=== PATIENT | female | born 1950 | race Caucasian/White ===

== ENCOUNTER → 2021-05-16 | Outpatient (CLI) | payer MEDICARE ==
--- NOTE | 2021-05-16 12:09 | XR ---
EXAMINATION TYPE: XR chest 2V DATE OF EXAM: 05/16/2021 COMPARISON: None HISTORY: Chest tightness TECHNIQUE: Frontal and lateral views of the chest are obtained. FINDINGS: There is no focal air space opacity, pleural effusion, or pneumothorax seen. The cardiac silhouette size is within normal limits. The osseous structures are intact. IMPRESSION: No acute cardiopulmonary process.
== END | disposition home or self-care (01) ==
LOC: RADXRMAIN 11:19
PROVIDERS: ATTEND Family Medicine
DX: R07.89 Other chest pain (principal)
CPT/HCPCS: 71046

== ENCOUNTER → 2021-12-19 | Outpatient (CLI) | payer MEDICARE ==
--- NOTE | 2021-12-20 08:20 | MM ---
Reason for exam: additional evaluation requested from prior study. Last mammogram was performed 1 month ago. History: Patient is postmenopausal. Family history of breast cancer in sister at age 59. Excisional biopsy of the right breast. Physical Findings: Nurse did not find any significant physical abnormalities on exam. MG 3D Diag Mammo W/Cad ABDIEL Bilateral spot compression CC, spot compression MLO, and LM view(s) were taken. Prior study comparison: November 21, 2021, mammogram, performed at [facility]. November 16, 2020, mammogram, performed at [facility]. August 03, 2018, mammogram, performed at [facility]. May 26, 2017, mammogram, performed at [facility]. There are scattered fibroglandular densities. No persisting asymmetric densities on spot 3D views. No significant new findings when compared with previous films. These results were verbally communicated with the patient and result sheet given to the patient on 12/19/21. ASSESSMENT: Benign, BI-RAD 2 RECOMMENDATION: Routine screening mammogram of both breasts in 1 year.
== END | disposition home or self-care (01) ==
LOC: RADMAMWWP 14:15
PROVIDERS: ATTEND Family Medicine
DX: N64.89 Other specified disorders of breast (principal); Z80.3 Family history of malignant neoplasm of breast; Z78.0 Asymptomatic menopausal state
CPT/HCPCS: 77066; G0279; 77062

== ENCOUNTER → 2023-03-04 | Outpatient (CLI) | payer MEDICARE ==
--- NOTE | 2023-03-05 06:45 | MM ---
Reason for Exam: Screening (asymptomatic). Last mammogram was performed 1 year(s) and 3 month(s) ago. Patient History: Menarche at age 10. First Full-Term at age 28. Postmenopausal. Patient has history of breast feeding. Excisional Biopsy on the Right side. Sister had breast cancer, age 59. Risk Values: Gunjan 5 year model risk: 4.5%. NCI Lifetime model risk: 11.3%. Prior Study Comparison: 05/26/2017 Screening Mammogram, [facility]. 08/03/2018 Screening Mammogram, [facility]. 11/16/2020 Screening Mammogram, [facility]. 11/21/2021 Screening Mammogram, [facility]. 12/19/2021 Bilateral Diagnostic Mammogram, [facility]. Tissue Density: The breast tissue is heterogeneously dense. This may lower the sensitivity of mammography. Findings: Analyzed By CAD. There are a few benign-appearing tiny round calcifications scattered throughout the bilateral breasts. There is no suspicious group of microcalcifications or new suspicious mass in either breast. Overall Assessment: Benign, BI-RAD 2 Management: Screening Mammogram of both breasts in 1 year. . Patient should continue monthly self-breast exams. A clinical breast exam by your physician is recommended on an annual basis. This exam should not preclude additional follow-up of suspicious palpable abnormalities. Note on Gunjan scores and lifetime risk: 1. A Gunjan score greater than 3% is considered moderate risk. If this is the case, consider specialist referral to assess eligibility for a risk reducing agent. 2. If overall lifetime risk for the development of breast cancer is 20% or higher, the patient may qualify for future screening with alternating mammogram and breast MRI. Electronically signed and approved by: Ede Simons M.D.
== END | disposition home or self-care (01) ==
LOC: RADMAMWWP 07:56
PROVIDERS: ATTEND Family Medicine
DX: Z12.31 Encounter for screening mammogram for malignant neoplasm of breast (principal); Z78.0 Asymptomatic menopausal state; Z80.3 Family history of malignant neoplasm of breast
CPT/HCPCS: 77063; 77067

== ENCOUNTER → 2024-03-11 | Outpatient (CLI) | payer MEDICARE ==
--- NOTE | 2024-03-14 15:04 | MM ---
Reason for Exam: Screening (asymptomatic). Last screening mammogram was performed 12 month(s) ago. Patient History: Menarche at age 10. First Full-Term at age 28. Postmenopausal. Patient has history of breast feeding. Excisional Biopsy on the Right side. Sister had breast cancer, age 59. Risk Values: Gunjan 5 year model risk: 4.5%. NCI Lifetime model risk: 10.7%. Prior Study Comparison: 11/21/2021 Screening Mammogram, [facility]. 12/19/2021 Bilateral Diagnostic Mammogram, [facility]. 03/04/2023 Bilateral MG 3D screening mammo w/cad, [facility]. Tissue Density: The breasts are heterogeneously dense, which may obscure small masses. Findings: Analyzed By CAD. Right breast: There is no suspicious group of microcalcifications or new suspicious mass. Left breast: There is no suspicious group of microcalcifications or new suspicious mass. Overall Assessment: Negative, BI-RAD 1 Management: Screening Mammogram of both breasts in [address] [facility] will attempt to contact patient to return for supplemental views and ultrasound if indicated. Patient should continue monthly self-breast exams. A clinical breast exam by your physician is recommended on an annual basis. This exam should not preclude additional follow-up of suspicious palpable abnormalities. Note on Gunjan scores and lifetime risk: 1. A [place]jan score greater than 3% is considered moderate risk. If this is the case, consider specialist referral to assess eligibility for a risk reducing agent. 2. If overall lifetime risk for the development of breast cancer is 20% or higher, the patient may qualify for future screening with alternating mammogram and breast MRI. Electronically signed and approved by: Wagner Castellano DO
== END | disposition home or self-care (01) ==
LOC: RADMAMWWP 10:16
PROVIDERS: ATTEND Family Medicine
DX: Z12.31 Encounter for screening mammogram for malignant neoplasm of breast (principal); Z80.3 Family history of malignant neoplasm of breast; Z78.0 Asymptomatic menopausal state
CPT/HCPCS: 77063; 77067

== ENCOUNTER → 2025-02-07 | Outpatient (CLI) | payer MEDICARE ==
[2025-02-07 13:30] VITALS: BP 144/83; PULSE 64; RESP 18; TEMP 97.4
--- NOTE | 2025-02-07 21:15 | P.SLEEP ---
History of Present Illness H&P Date: 02/07/25 74-year-old female patient referred to me for sleep apnea evaluation. Her , James, has obstructive sleep apnea and is also suspicious that his had same disorder. Noted since her COVID-19 infection back in 2019, the patient has been experiencing excessive fatigue and tiredness. She does have limited sleepiness. She also has a stress fracture of the femur the patient is going to undergo a left hip arthroplasty on 03/10/2025. She is noted of hypothyroidism, osteoporosis, hyperlipidemia. The patient has difficulties in initiating sleep and she has been utilizing on and off Ambien on an as-needed basis with a low- dose of 5 mg and she typically uses Ambien once or twice a week. She goes to bed at 11 PM and gets out of bed at 8 AM in the morning. She feels that she is averaging about 8 hours of sleep. She has snoring. She has been noted to quit breathing by hospital. She has excessive fatigue during the day. She wakes up tired. She occasionally grinds her teeth. No jaw pain. She is sleeping on her side and she occasionally takes naps during the day if she drinks too cups of coffee in the morning. She also has reported occasional episodes of sleep talking. Her current [place] score is at 3. No recent weight gain and weight has remained stable over the years. No sleep paralysis. No hallucinations. No cataplexy. No other significant cardiovascular disease or complications. Review of Systems Constitutional: Reports daytime sleepiness, Reports fatigue Eyes: denies as per HPI, denies blurred vision, denies bulging eye, denies decreased vision, denies diplopia, denies discharge, denies dry eye, denies irritation, denies itching, denies pain, denies photophobia, denies loss of peripheral vision, denies loss of vision, denies tunnel vision/blind spots Ears: deny: decreased hearing, ear discharge, earache, tinnitus Ears, nose, mouth and throat: Reports as per HPI Breasts: absent: as per HPI, change in shape, gynecomastia, masses, nipple discharge, pain, skin changes, swelling Respiratory: Reports as per HPI, Reports snoring Gastrointestinal: Reports as per HPI Genitourinary: Reports as per HPI Menstruation: Reports as per HPI Musculoskeletal: Reports as per HPI (Her pain) Musculoskeletal: absent: ankle pain, ankle stiffness, ankle swelling, as per HPI, elbow pain, elbow stiffness, elbow swelling, foot pain, foot stiffness, foot swelling, hand pain, hand stiffness, hand swelling, hip pain, hip stiffness, hip swelling, knee pain, knee stiffness, knee swelling, shoulder pain, shoulder stiffness, shoulder swelling, wrist pain, wrist stiffness, wrist swelling Integumentary: Reports as per HPI Neurological: Reports as per HPI Psychiatric: Reports as per HPI, Reports change in sleep habits, Reports hypersomnia, Reports sleep disturbances Endocrine: Reports as per HPI, Reports fatigue Hematologic/Lymphatic: Reports as per HPI Allergic/Immunologic: Reports as per HPI Past Medical History Past Medical History: Hyperlipidemia, Thyroid Disorder Additional Past Medical History / Comment(s): Insomnia, osteopena, hypothyroid, Mild Depression History of Any Multi-Drug Resistant Organisms: None Reported Past Surgical History: Adenoidectomy, Appendectomy, Tonsillectomy, Tubal Ligation Additional Past Surgical History / Comment(s): Colonoscopies ( ) (Patient to have total Left hip replacment on March 10, 2025 - fx femoral bone - stress fx), cyst removed right breast Past Psychological History: Depression Additional Psychological History / Comment(s): Mild Depression Smoking Status: Former smoker Past Alcohol Use History: Occasional Past Drug Use History: None Reported - Past Family History Father Family Medical History: Cancer, CVA/TIA, Hypertension Additional Family Medical History / Comment(s): Skin cancer, snoring (patient brother of cancer, - 8 weeks - unsure type but thinks it started in the lungs) Medications and Allergies Home Medications Medication Instructions Recorded Confirmed Type Alendronate Sodium 70 mg PO WEEKLY 02/07/25 02/07/25 History Levothyroxine Sodium [Tirosint] 88 mcg PO DAILY 02/07/25 02/07/25 History Rosuvastatin [Crestor] 10 mg PO DAILY 02/07/25 02/07/25 History Sertraline [Zoloft] 50 mg PO DAILY 02/07/25 02/07/25 History Zolpidem [Ambien] 5 mg PO DIRECTED 02/07/25 02/07/25 History Physical Exam Vitals: Vital Signs Temp Pulse Resp BP Pulse Ox 02/07/25 13:26 97.4 F L 64 18 144/83 98 Intake and Output 0402/07/25 02/07/25 06:59 14:59 22:59 Other: Weight 65.771 kg The patient appeared well nourished and normally developed. Vital signs as documented. Body mass index is 25.6. Weight is 145 pounds. [place] scores of 3 Head exam is unremarkable. No scleral icterus or corneal arcus noted. Neck is without jugular venous distension, thyromegaly, or carotid bruits. Carotid upstrokes are brisk bilaterally. Mallampati class II/III Lungs are clear to auscultation and percussion. Cardiac exam reveals the PMI to be normally sized and situated. Rhythm is regular. First and second heart sounds normal. No murmurs, rubs or gallops. Abdominal exam reveals normal bowel sounds, no masses, no organomegaly and no aortic enlargement. Extremities are nonedematous and both femoral and pedal pulses are normal. Examination of the skin revealed no evidence of significant rashes, suspicious appearing nevi or other concerning lesions. Neurologically, the patient is awake and alert and the patient does not have any focal neurological deficit. Cranial nerves are essentially intact. Assessment and Plan Plan: Chronic fatigue/sleepiness with an [place] score of 3. My overall clinical suspicion for significant obstructive sleep apnea is low. Sleep onset insomnia, utilizing Ambien on an as-needed basis, low-dose of 5 mg Snoring Witnessed apneas as reported by the Body mass index of 25.6 Chronic fatigue attributed to previous COVID-19 infection, 2020 Hyperlipidemia Hypothyroidism Osteoporosis Stress fracture of the left hip awaiting left-sided replacement Plan My overall clinical suspicion for sleep apnea is low. The patient will be given a home sleep study to screen for sleep apnea Encourage maintaining good sleep hygiene measures Maintain regular sleep schedule pain control with Manage as of a stress fracture of the hip and the patient is awaiting a left hip replacement Management of comorbidities Will continue to follow Sleep Note - Sleep Data ESS Total: 3 - Sleep Note Sleep Note: Temperature: 97.4 F Pulse Rate: 64 Respiratory Rate: 18 Blood Pressure: 144/83 SpO2: 98 Height: 5 ft 3 in Weight: 65.771 kg BMI: Neck Circumference: 14.5
== END ==
LOC: 3 N SLEEP 13:06
PROVIDERS: ATTEND Internal Medicine Critical Care Medicine
DX: G47.33 Obstructive sleep apnea (adult) (pediatric) (principal); R53.82 Chronic fatigue, unspecified; E78.5 Hyperlipidemia, unspecified; E03.9 Hypothyroidism, unspecified; M81.0 Age-related osteoporosis without current pathological fracture; Z68.25 Body mass index [BMI] 25.0-25.9, adult; Z96.642 Presence of left artificial hip joint; Z87.891 Personal history of nicotine dependence
CPT/HCPCS: 99211

== ENCOUNTER → 2025-02-20 | Outpatient (CLI) | payer MEDICARE ==
--- NOTE | 2025-02-27 20:50 | P.PCN ---
Date of Procedure: 02/20/25 Operative Findings: Home sleep study testing Date of service is 02/20/2025 History 74-year-old female patient referred to me for sleep apnea evaluation. Her , James, has obstructive sleep apnea and is also suspicious that his had same disorder. Noted since her COVID-19 infection back in 2019, the patient has been experiencing excessive fatigue and tiredness. She does have limited sleepiness. She also has a stress fracture of the femur the patient is going to undergo a left hip arthroplasty on 03/10/2025. She is noted of hypothyroidism, osteoporosis, hyperlipidemia. The patient has difficulties in initiating sleep and she has been utilizing on and off Ambien on an as-needed basis with a low- dose of 5 mg and she typically uses Ambien once or twice a week. She goes to bed at 11 PM and gets out of bed at 8 AM in the morning. She feels that she is averaging about 8 hours of sleep. She has snoring. She has been noted to quit breathing by hospital. She has excessive fatigue during the day. She wakes up tired. She occasionally grinds her teeth. No jaw pain. She is sleeping on her side and she occasionally takes naps during the day if she drinks too cups of coffee in the morning. She also has reported occasional episodes of sleep talking. Her current [place] score is at 3. No recent weight gain and weight has remained stable over the years. No sleep paralysis. No hallucinations. No cataplexy. No other significant cardiovascular disease or complications. Pertinent physical findings The patient's body mass index is 25.7, weight is 65.7 kg Technical description The [employer] system was used to complete a home sleep study. This is a type III home sleep study evaluation. The total recording duration was 8 hours and 59 minutes. The study started 10:16 PM and ended at 7:15 AM. There was a total of 8 hours and 47 minutes of flow and oxygen saturation monitoring and this was an adequate study Results The respiratory analysis showed a total of 5 obstructive apneas and 42 obstructive hypopneas. The resulting AHI was 5.3 consistent with mild o bstructive sleep apnea Oxygenation analysis The baseline pulse ox while the patient was awake was 94%. Average pulse ox during sleep was 91% and the minimum pulse ox during sleep was 82% and the pat ient spent approximately 11 minutes of the sleep time below pulse ox of 89% Cardiac summary Average heart rate was 64 with a minimum heart rate of 55 and a maximum heart rate of 95 Assessment Mild NICCI with an AHI of 5.3. No significant nocturnal oxygen saturations. No significant hypersomnia or sleepiness. Body mass index is 25.7. No other comorbidities. Chronic fatigue/sleepiness with an [place] score of 3. Sleep onset insomnia, utilizing Ambien on an as-needed basis, low-dose of 5 mg Snoring Body mass index of 25.6 Chronic fatigue attributed to previous COVID-19 infection, 2020 Hyperlipidemia Hypothyroidism Osteoporosis Stress fracture of the left hip awaiting left-sided replacement Plan This is a case of very mild obstructive sleep apnea. No significant nocturnal oxygen desaturations. AHI is at 5.3. I do not see the need for CPAP therapy especially the patient is not having any major hypersomnia or sleepiness. Current [place] score is at 3. Encourage maintaining good sleep hygiene measures Maintain regular sleep schedule Management of comorbidities Contact back if there is any worsening in her condition. Otherwise, based on the presence of the mild disease, no need for CPAP therapy. May consider alternative treatments including oral appliance if she is willing to pursue any further treatment.
== END ==
LOC: 3 N SLEEP 10:45
PROVIDERS: ATTEND Internal Medicine Critical Care Medicine
DX: G47.33 Obstructive sleep apnea (adult) (pediatric) (principal); E03.9 Hypothyroidism, unspecified; E78.5 Hyperlipidemia, unspecified; M81.0 Age-related osteoporosis without current pathological fracture; M84.359A Stress fracture, hip, unspecified, initial encounter for fracture; Z76.82 Awaiting organ transplant status; Z86.16 Personal history of COVID-19

== ENCOUNTER → 2025-02-28 | Outpatient (CLI) | payer MEDICARE ==
[2025-02-28 10:36] LABS: INR 0.9 (<1.2); Partial Thromboplastin Time 22.3 sec (22.0-30.0); Prothrombin Time 9.8 sec (10.0-12.5)
[2025-02-28 15:18] LABS: ALT 50 U/L (8-44); AST 40 U/L (13-35); Albumin 4.4 g/dL (3.8-4.9); Alkaline Phosphatase 67 U/L (41-126); Blood Urea Nitrogen 16.2 mg/dL (9.0-27.0); Calcium 9.6 mg/dL (8.7-10.3); Carbon Dioxide 25.6 mmol/L (21.6-31.8); Chloride 106 mmol/L (96-109); Globulin 2.2 g/dL (1.6-3.3); Glucose 117 mg/dL (70-110); Potassium 4.4 mmol/L (3.5-5.5); Sodium 142 mmol/L (135-145); Total Bilirubin 0.4 mg/dL (0.3-1.2); Total Protein 6.6 g/dL (6.2-8.2)
== END | disposition home or self-care (01) ==
LOC: LABWHC1 09:05
PROVIDERS: ATTEND Orthopaedic Surgery
DX: Z01.818 Encounter for other preprocedural examination (principal); M16.11 Unilateral primary osteoarthritis, right hip; E11.9 Type 2 diabetes mellitus without complications; Z22.322 Carrier or suspected carrier of Methicillin resistant Staphylococcus aureus; R94.31 Abnormal electrocardiogram [ECG] [EKG]
CPT/HCPCS: 36415; 80053; 83036; 85610; 85730; 86850; 86900; 86901; 87070; 93005

== ENCOUNTER → 2025-03-07 | Outpatient (CLI) | payer MEDICARE ==
[2025-03-07 15:04] LABS: HCT 43.5 % (37.2-46.3); HGB 14.7 g/dL (12.0-15.0); MCHC 33.8 g/dL (32.0-37.0); MCV 97.5 FL (80.0-97.0); Mean Platelet Volume 10.6 FL (9.5-12.2); NRBC Per 100 WBC 0 X 10*3/uL (0.00-0.01); Platelet Count 250 X 10*3/uL (140-440); RBC 4.46 X 10*6/uL (4.10-5.20); RDW 12.1 % (11.5-14.5); WBC 6.19 X 10*3/uL (4.50-10.00)
== END | disposition home or self-care (01) ==
LOC: LABPAT 08:44
PROVIDERS: ATTEND Orthopaedic Surgery
DX: Z01.812 Encounter for preprocedural laboratory examination (principal)
CPT/HCPCS: 85027

== ENCOUNTER 2025-03-10 10:28 | Day surgery (SDC) | payer MEDICARE ==
[2025-03-02 14:38] VITALS: BMI 25.1
[~2025-03-10 10:28] MED LIST: HYDROmorphone 0.5 MG/0.5 ML SYRINGE IVP PRN; TRANEXAMIC 1,000 MG/100ML-NACL 1,000 MG in SALINE 1 100ML.BAG IV PRN; TRANEXAMIC 1,000 MG/100ML-NACL 1,000 MG in SALINE 1 100ML.BAG IVPB PRN
[2025-03-10] MEDS: IV FLUID CONTINUATION 1,000 ML IV ONE (11:30)
[2025-03-10] MEDS: oxyCODONE ER 10 MG TAB.ER.12H PO PRN (11:32)
[2025-03-10] MEDS: ACETAMINOPHEN TAB 500 MG TAB PO PRN (11:32)
[2025-03-10] MEDS: DOCUSATE 100 MG CAP PO PRN (11:32)
[2025-03-10] MEDS: fentaNYL (PF) 50 MCG/ML 2 ML AMP IVP STA (11:42)
[2025-03-10] MEDS: MIDAZOLAM 2 MG/2 ML VIAL IV PRN (11:42)
[2025-03-10] MEDS: KETOROLAC 15 MG/ML 1 ML VIAL IVP PRN (12:01)
[2025-03-10] MEDS: ONDANSETRON 4 MG/2 ML VIAL IVP PRN ×2 (12:02→21:50)
[2025-03-10] MEDS: DEXAMETHASONE SOD PHOSPHATE 10 MG/ML 1 ML VIAL IV PRN (12:03)
[2025-03-10] MEDS: LACTATED RINGERS 1,000 ML IV SCH (12:03)
[2025-03-10] MEDS: FAMOTIDINE 20 MG/2 ML VIAL IVP PRN (12:06)
[2025-03-10] MEDS ORDERED: TRANEXAMIC 1,000 MG/100ML-NACL PREMIX BAG ONE (12:18)
[2025-03-10] MEDS ORDERED: ePHEDrine 50 MG/ML 1 ML VIAL ONE (12:18)
[2025-03-10] MEDS ORDERED: NEOSTIGMINE 1 MG/ML 10 ML VIAL ONE (12:18)
[2025-03-10] MEDS ORDERED: DEXAMETHASONE SOD PHOSPHATE 4 MG/ML 1 ML VIAL ONE (12:18)
[2025-03-10] MEDS ORDERED: PROPOFOL 10 MG/ML 20 ML VIAL IV ONE (12:18)
[2025-03-10] MEDS ORDERED: HYDROmorphone (PF) 1 MG/ML ONE (12:18)
[2025-03-10] MEDS ORDERED: ROPIVACAINE 5 MG/ML 30 ML VIAL ONE (12:18)
[2025-03-10] MEDS ORDERED: fentaNYL (PF) 50 MCG/ML 2 ML AMP ONE (12:18)
[2025-03-10] MEDS ORDERED: ROCURONIUM 10 MG/ML (5 ML VIAL) IV ONE (12:18)
[2025-03-10] MEDS ORDERED: LIDOCAINE 1% INJ 10MG/ML (20 ML MDV) ONE (12:18)
[2025-03-10] MEDS ORDERED: PHENYLEPHRINE-0.9% NACL SYG 1,000 MCG/10 ML SYRINGE ONE (12:18)
[2025-03-10] MEDS ORDERED: GLYCOPYRROLATE 0.2 MG/ML 2 ML VIAL ONE (12:18)
[2025-03-10] MEDS: ceFAZolin 2 GM in DEXTROSE 5% IN WATER 50 ML IVPB PRN (12:23)
[2025-03-10] MEDS: ROPIVACAINE/EPI/CLONIDINE/KET 50 ML SYRINGE MISCELLANE PRN (13:00)
[2025-03-10] MEDS: LACTATED RINGERS 1,000 ML IV ONE ×3 (13:26→16:13)
[2025-03-10] MEDS ORDERED: hydrOXYzine pamoate 25 MG CAP PO PRN (14:22)
[2025-03-10] MEDS ORDERED: TEMAZEPAM 15 MG CAP PO PRN (14:22)
[2025-03-10] MEDS ORDERED: NALOXONE 0.4 MG/ML 1 ML VIAL IV PRN (14:22)
[2025-03-10] MEDS ORDERED: diazePAM 5 MG TAB PO PRN ×2 (14:22)
[2025-03-10] MEDS ORDERED: HYDROmorphone 0.5 MG/0.5 ML SYRINGE IVP PRN ×3 (14:22)
[2025-03-10] MEDS ORDERED: MAGNESIUM HYDROXIDE 2,400 MG/30 ML CUP PO PRN (14:22)
--- NOTE | 2025-03-10 14:22 | P.OP ---
Date of Procedure: 03/10/25 Preoperative Diagnosis: Severe left hip osteoarthritis Postoperative Diagnosis: Same Procedure(s) Performed: Left direct anterior total hip arthroplasty Implants: 1. Parth Trident II Acetabular Cup, Size #50 2. Parth Accolade C Size #4 Femoral Stem, Standard Offset 3. Dual Mobility OD 38 mm, ID 28 mm, -4 mm neck Anesthesia: GETA, regional Surgeon: Fletcher Torres Insurance Operations Rep #1: Jim Reed Estimated Blood Loss (ml): 200 IV fluids (ml): 800 Pathology: none sent Condition: stable Disposition: PACU Indications for Procedure: I had a long discussion with the patient in the office on the potential risks and complications of an elective total hip replacement through a direct anterior approach. Risks discussed include, but are certainly not limited to, risks from anesthesia, superficial infection requiring local wound care or antibiotics, deep viola-prosthetic joint infection and the treatment required to eradicate infection, intraoperative fracture, postoperative periprosthetic fracture, damage to local blood vessels or nerves particularly the lateral femoral cutaneous nerve, delayed wound healing requiring local wound care or possibly surgical debridement, hip dislocation, leg length discrepancy, soft tissue irritation around the total hip implant such as iliopsoas tendinitis or trochanteric bursitis, wear and osteolysis from the implants, squeaking or audible noises, groin pain, thigh pain, heterotopic ossification, stiffness, aseptic loosening of the implants, dissatisfaction with surgical outcome, need for revision surgery, DVT, PE, swelling of the operative extremity, acute coronary event, stroke, failure to thrive, and possibly loss of life or limb. The patient understands that while these are the most common complications after an elective hip replacement there are certainly other less common complications possible. They were given ample time to ask questions regarding the potential complications of a hip replacement. Following our discussion the patient provided their verbal and written consent to go forward with an elective total hip replacement. Operative Findings: Severe left hip osteoarthritis with complete cartilage loss on the femoral head Description of Procedure: The patient was identified in the preoperative holding area and the correct hip was marked with my initials. I reviewed the procedure and consent with the patient. All of their questions were answered. The patient was then brought back into the operating room by anesthesia. While on the [facility] anesthesia was administered by the anesthesia team. Preoperative antibiotics and tranexamic acid were also given. After the patient was under anesthesia I examined their ankles to determine their preoperative leg length discrepancy. The skin over the anterior aspect of the hip was shaved to remove hair over the site of planned incision. Both feet and ankles were padded with webril and boots for the [place] were applied. The patient was then carefully transferred onto the [place] table. A perineal post was immediately placed. The arms were placed on arm holders and were well-padded. Both boots were secured to the spars on the [place] table. The patient was positioned so that the pelvis was centered over the post. Nonsterile drapes were applied. A timeout was performed identifying the correct patient, operative extremity, and procedure. At this point fluoroscopy was brought in to take preoperative images of the pelvis and operative hip. Using the standing AP pelvis from the office as a template, a comparable image was obtained with fluoroscopy. A metallic bar was used to create a bi-ischial line for use as a reference to leg length adjustments during the procedure. Global offset was also measured on both the operative and nonoperative leg. Fluoroscopy was then brought out and a pre-scrub using a chlorhexidine scrub brush was performed. The operative limb was then prepped and draped in the standard sterile fashion. An anterior longitudinal incision was made lateral and distal to the ASIS. The skin and subcutaneous tissues were incised sharply. The underlying tensor fascia was identified and incised in its midportion. The fascia was dissected free from the underlying muscle and the muscle belly was retracted. A blunt tipped cobra retractor was placed over the superior neck under the muscle fibers of the gluteus minimus. The deep enveloping fascia of the tensor was incised. The anterior leash of vessels were then identified and cauterized. The fascia between the rectus and the capsule was then incised and the pre-capsular fat was excised. A second Cobra was placed inferior to the neck. The interval between the rectus and iliocapsularis and the hip capsule was developed and a retractor was placed carefully over the anterior rim of the acetabulum. A T-shaped anterior capsulotomy was performed. The superior capsular leaflet was left in place in the inferior capsular flap was excised. The Cobra retractors were placed intracapsularly. We then made a femoral neck osteotomy according to preoperative and intraoperative templating and confirmed the level of the osteotomy using fluoroscopic imaging. The femoral head was removed, passed off to the back table, and sized. The superior capsular flap was excised. Retractors were placed circumferentially exposing the acetabulum. We then circumferentially debrided the acetabulum free of labrum and osteophytes. The pulvinar was removed to fully visualize the cotyloid fossa. We then sequentially reamed to achieve peripheral fit and excellent bleeding subchondral bone. The socket was thoroughly irrigated. The acetabular component was impacted into the appropriate position using fluoroscopy to guide version, incli nation, and depth of insertion taking care to have a comparable image of the AP pelvis to the standing image taken in the office. An excellent press-fit was achieved and final position was confirmed using fluoroscopy. The press fit was augmented with bony cancellus dome screws. The liner was then impacted into the socket. Attention was then turned to the femur. The remnant dorsal lateral capsule was excised. The short external rotators were visible and protected. A bone hook was used to confirm appropriate translation of the trochanter away from the acetabulum. The leg was then extended and adducted and the bone hook was used to elevate the femur for broaching. On inspection of the patient's proximal femur, they appeared to have poor bone quality so I elected to proceed with cemented fixation of the femoral component. A box osteotome and blunt tipped canal sound was then utilized to gain access to the femoral canal. We then sequentially broached the femur in appropriate anteversion until torsional stability was achieved and the implant was felt to have reached the appropriate size to allow trialing. The neck cut was brought flush to the trial broach with a calcar planar. A trial neck and head were then placed onto the broach and the hip was atraumatically reduced under direct visualization. External rotation to 90 was performed to assess stability. Fluoroscopy was brought in. An AP and lateral fluoroscopic image of the proximal femur was obtained to assess position and fill of the trial broach. An AP of the pelvis was then obtained and matched to the preoperative image taken. A bi-ischial bar was then placed and measurements were taken to assess changes in length and offset. The hip was then carefully dislocated, the proximal femur was exposed, and the trial implants were removed. The proximal femur was then prepared for cementing. The canal was thoroughly irrigated with pulsatile lavage to remove blood and marrow contents. A cement restrictor was placed to a depth just distal to the tip of the final implant. Epinephrine-soaked gauze was then packed into the proximal femur. 2 bags of cement were then mixed using a centrifuge and placed into a cement gun. Anesthesia was notified that cementing was about to commence to make sure the patient was appropriately ventilated and hydrated. Once the cement had reached appropriate consistency, the cement gun was used to fill the canal in a retrograde fashion starting at the restrictor. Cement was then pressurized into the canal with a blue tipped hedge fund accountant. The stem was then carefully introduced into the cement taking care to guide the implant into appropriate version. The stem was held in position until the cement had fully set. All extra cement was removed while the cement was hardening. The trunnion was cleansed and the final head was tapped into place to engage the Aldridge taper. The acetabulum was irrigated and visualized to be free of debris. The hip was carefully reduced. Stability was checked clinically with external rotation to 90 and there was no evidence of instability. Final fluoroscopic images were taken. The wound was then thoroughly irrigated and soaked with a dilute Betadine rinse for 3 minutes. 3 L of sterile saline was irrigated through the wound using pulsatile lavage. Local anesthetic cocktail was injected into the soft tissues around the surgical field. The wound was then closed in layers. A sterile dressing was placed over the surgical incision. The drapes were taken down and the patient was carefully transferred off of the [place] table. Following removal of the boots the leg lengths felt acceptable. The patient was then taken to recovery room having tolerated the procedure well. Jim Reed PA-C was required as a skilled information assistant due to the complexity of surgery for patient positioning, draping, exposure, retraction, closure of wound and application of dressing. PLAN: The patient can weight-bear as tolerated on the operative extremity. 2 doses of postoperative antibiotics. DVT prophylaxis with aspirin 81 mg twice a day based on preoperative risk stratification. Physical therapy for gait training.
--- NOTE | 2025-03-10 14:34 | XR ---
EXAMINATION TYPE: XR Hip Limited LT, FL guidance operating room Intraoperative/procedural fluoroscopi c services were provided. CLINICAL INDICATION:Female, 74 years old with history of Left Hip-Ant; , PH FINDINGS: Post surgical changes from left hip arthroplasty. Hardware appears intact with appropriate alignment. No radiographic evidence for complication. Total fluoroscopy time is 44.6 seconds. DAP: 1.4199 Gycm2 Please see the operative/procedural note for further details. [facility], , 03/10/2025 2:32 PM
--- NOTE | 2025-03-10 15:40 | P.ANPRN ---
Procedure Note - Anesthesia - Nerve Block Performed Left Rafael Single Time Out Performed: Yes ([id number]) Date of Procedure: 03/10/25 Procedure Start Time: 11:43 Procedure Stop Time: 11:47 Location of Patient: PreOp Indication: Acute Post-Operative Pain, Requested by Surgeon Specifically requested for management of pain by DrSilver: Fletcher Torres Sedation Type: Sedate with meaningful contact maintained Preparation: Sterile Prep Position: Supine Catheter: None Needle Types: Pajunk Needle Gauge: 21 Ultrasound used to visualize needle placement: Yes Ultrasound used to observe medication spread: Yes Injectate: 0.5% Ropivacaine (see comment for volume) (15cc+10cc nacl pf+decadron 4mg) Blood Aspirated: No Pain Paresthesia on Injection Noted: No Resistance on Injection: Normal Image Stored and Saved: Yes Events: Uneventful and Well Tolerated
[2025-03-10] MEDS: SODIUM CHLORIDE 0.9% 1,000 ML IV SCH (16:51)
[2025-03-10] MEDS: HYDROcodone/APAP 10-325MG 1 EACH TAB PO PRN (17:11)
[2025-03-10] MEDS: ceFAZolin 2 GM in DEXTROSE 5% IN WATER 50 ML IVPB SCH (20:36)
[2025-03-10] MEDS: ASPIRIN 81 MG PO SCH (20:36)
[2025-03-10] MEDS: SENNOSIDES-DOCUSATE SODIUM 1 EACH TAB PO SCH (20:36)
[2025-03-10] MEDS ORDERED: FLUTICASONE NASAL 50MCG/SPRAY 16GM BTL NASAL PRN (21:02)
[2025-03-10] MEDS: ATORVASTATIN 20 MG TAB PO SCH (21:50)
[2025-03-10] MEDS: ZOLPIDEM 5 MG TAB PO SCH (21:50)
--- NOTE | 2025-03-10 23:36 | P.CONS ---
History of Present Illness - Reason for Consult Consult date: 03/10/25 Hypothyroidism, hyperlipidemia and other chronic medical problems - Chief Complaint s/p left hip - History of Present Illness The patient is a 74 yo female with a history of hypothyroidism, hyperlidemia who states that she suffered a foot stress fracture on her left hip. The patient states initially did not bother her too much she was in [place] and while in [place] she developed worsening pain in her left hip. The patient states when she came back to [place] she was having more pain tried conservative therapy did not improve she is currently status post left hip arthroplasty. My eval uation patient is just gotten up for the first time to go to the bathroom. She states she was having some dizziness and nausea. Patient states her pain was controlled. The patient denies any chest pain shortness of breath. Past Medical History Past Medical History: Hyperlipidemia, Thyroid Disorder Additional Past Medical History / Comment(s): Insomnia, osteopena, hypothyroid, Mild Depression History of Any Multi-Drug Resistant Organisms: None Reported Past Surgical History: Adenoidectomy, Appendectomy, Tonsillectomy, Tubal Ligation Additional Past Surgical History / Comment(s): Colonoscopies ( - ) (Patient to have total Left hip replacment on March 10, 2025 - fx femoral bone - stress fx), cyst removed right breast Past Anesthesia/Blood Transfusion Reactions: No Reported Reaction, Motion Sickness Additional Past Anesthesia/Blood Transfusion Reaction / Comm: No hx of blood transfusion to date. Mother has PONV. Past Psychological History: Depression Additional Psychological History / Comment(s): Mild Depression Smoking Status: Former smoker Past Alcohol Use History: Occasional Additional Past Alcohol Use History / Comment(s): started smoking at age 21, 1ppd, [id number] Past Drug Use History: None Reported - Past Family History Father Family Medical History: Cancer, CVA/TIA, Hypertension Additional Family Medical History / Comment(s): Skin cancer, snoring (patient brother of cancer, - 8 weeks - unsure type but thinks it started in the lungs) Brother(s) Family Medical History: Cancer, Pulmonary Embolus Additional Family Medical History / Comment(s): Lung cancer Medications and Allergies Home Medications Medication Instructions Recorded Confirmed Type Alendronate Sodium 70 mg PO WEEKLY 02/07/25 03/10/25 History Levothyroxine Sodium [Tirosint] 88 mcg PO QAM 02/07/25 03/10/25 History Rosuvastatin [Crestor] 10 mg PO HS 02/07/25 03/10/25 History Sertraline [Zoloft] 50 mg PO HS 02/07/25 03/10/25 History Zolpidem [Ambien] 2.5 mg PO DIRECTED 02/07/25 03/10/25 History Fluticasone Nasal [place] [Flonase 1 spray NASAL QAM PRN 03/02/25 03/10/25 History Nasal [place]] Ibuprofen(Unknown Dose) 1 dose PO DIRECTED PRN 03/02/25 03/10/25 History Latanoprost Ophth [Xalatan 0.005%] 1 drops BOTH EYES HS 03/02/25 03/10/25 Histor y Prilosec(Unknown Dose) 1 dose PO QAM PRN 03/02/25 03/10/25 History Vitamin B12(Unknown Dose) 1 dose PO QAM 03/02/25 03/10/25 History Vitamin D3/Vitamin K2 (Mk4) 1 each PO QAM 03/02/25 03/10/25 History [Vitamin K2 Plus D3 Tablet] lisinopriL [Zestril] 10 mg PO QAM 03/02/25 03/10/25 History Allergies Allergy/AdvReac Type Severity Reaction Status Date / Time meperidine [From Demerol] AdvReac Nausea & Verified 03/10/25 11:21 Vomiting Physical Exam Vitals: Vital Signs Temp Pulse Pulse Pulse Resp BP BP 03/10/25 22:43 105/70 03/10/25 20:34 97.8 F 69 18 95/64 03/10/25 16:29 71 18 97/58 03/10/25 16:14 93/55 03/10/25 16:08 96/55 03/10/25 16:03 73 16 98/56 03/10/25 15:49 61 16 87/49 03/10/25 15:34 72 16 92/53 03/10/25 15:19 74 16 94/53 03/10/25 15:04 59 L 16 99/49 03/10/25 14:49 75 16 90/53 03/10/25 14:34 97 F L 101 H 14 103/57 03/10/25 11:57 64 16 104/56 03/10/25 11:19 97.2 F L 63 18 124/68 Pulse Ox 03/10/25 22:43 03/10/25 20:34 96 03/10/25 16:29 98 03/10/25 16:14 03/10/25 16:08 03/10/25 16:03 98 03/10/25 15:49 99 03/10/25 15:34 94 L 03/10/25 15:19 100 03/10/25 15:04 100 03/10/25 14:49 100 03/10/25 14:34 100 03/10/25 11:57 98 03/10/25 11:19 97 Intake and Output 03/10/25 03/10/25 03/10/25 06:59 14:59 22:59 Intake Total 1050 1600 Output Total 200 Balance 850 1600 Intake: IV 1050 1600 Output: Estimated Blood Loss 200 Other: # Voids 0 Weight 64 kg 64 kg - Constitutional General appearance: average body habitus - Respiratory Respiratory: bilateral: CTA - Cardiovascular Rhythm: regular - Gastrointestinal General gastrointestinal: normal bowel sounds - Psychiatric Psychiatric: A&O x's 3, appropriate affect Assessment and Plan (1) Nausea Current Visit: Yes Status: Acute Code(s): R11.0 - NAUSEA SNOMED Code(s): 575388027 (2) Dizziness Narrative/Plan: Monitoring postop. Symptomatic support Current Visit: Yes Status: Acute Code(s): R42 - DIZZINESS AND GIDDINESS SNOMED Code(s): 010732688 (3) Hyperlipidemia Narrative/Plan: Continue statin Current Visit: Yes Status: Acute Code(s): E78.5 - HYPERLIPIDEMIA, UNSPECIFIED SNOMED Code(s): 90262188 (4) HTN (hypertension) Narrative/Plan: Continue home regiment and titrate as needed Current Visit: Yes Status: Acute Code(s): I10 - ESSENTIAL (PRIMARY) HYPERTENSION SNOMED Code(s): 17386219 Plan: Continue symptomatic treatment of nausea, resume home medications, pain control as per primary team. Thank you will continue and monitor and medically optimize as needed
[2025-03-11] MEDS: HYDROcodone/APAP 5-325MG 1 EACH TAB PO PRN (00:47)
[2025-03-11] MEDS: ZOLPIDEM 5 MG TAB PO SCH (01:26)
[2025-03-11] MEDS: LEVOTHYROXINE 88 MCG TAB PO SCH (06:04)
[2025-03-11] MEDS: lisinopriL 10 MG TAB PO SCH (08:31)
[2025-03-11] MEDS: FAMOTIDINE 20 MG TAB PO SCH (08:36)
[2025-03-11] MEDS: MULTIVITAMINS, THERA 1 EACH TAB PO SCH (08:36)
[2025-03-11 08:38] VITALS: BP 100/59; PULSE 61; RESP 18; TEMP 97.8
--- NOTE | 2025-03-11 08:46 | P.DS ---
Providers Date of admission: The patient is a very pleasant 74-year-old female who was admitted under my care after undergoing an uncomplicated total hip replacement. She was transferred to the orthopedic floor following surgery. She received 2 doses of postoperative antibiotics. She was transition from IV to oral pain medications. She was seen on postoperative day #1 and was doing well. The dressing over her hip was intact. Femoral nerve function was intact. She was able to actively plantarflex and dorsiflex her ankle and her toes. Orders were placed for consultation to both physical therapy and internal medicine. The patient was tentatively cleared for discharge home pending evaluation by physical therapy. Attending physician: Fletcher Torres Consults: 03/10/25 14:22 Consult Physician Routine Consulting Provider: Eladio Benitez Consult Reason/Comments: post op medical management Do you want consulting provider notified?: Yes Primary care physician: Adriano Davidson Plan - Discharge Summary Discharge Rx Participant: No New Discharge Prescriptions: No Action Alendronate Sodium 70 mg PO WEEKLY Zolpidem [Ambien] 2.5 mg PO DIRECTED Levothyroxine Sodium [Tirosint] 88 mcg PO QAM Vitamin D3/Vitamin K2 (Mk4) [Vitamin K2 Plus D3 Tablet] 1 each PO QAM Vitamin B12(Unknown Dose) 1 dose PO QAM Fluticasone Nasal [place] [Flonase Nasal [place]] 1 spray NASAL QAM PRN PRN Reason: allergies lisinopriL [Zestril] 10 mg PO QAM Prilosec(Unknown Dose) 1 dose PO QAM PRN PRN Reason: acid reflux Rosuvastatin [Crestor] 10 mg PO HS Sertraline [Zoloft] 50 mg PO HS Ibuprofen(Unknown Dose) 1 dose PO DIRECTED PRN PRN Reason: Pain Latanoprost Ophth [Xalatan 0.005%] 1 drops BOTH EYES HS Discharge Medication List Alendronate Sodium 70 mg PO WEEKLY 02/07/25 [History] Levothyroxine Sodium [Tirosint] 88 mcg PO QAM 02/07/25 [History] Rosuvastatin [Crestor] 10 mg PO HS 02/07/25 [History] Sertraline [Zoloft] 50 mg PO HS 02/07/25 [History] Zolpidem [Ambien] 2.5 mg PO DIRECTED 02/07/25 [History] Fluticasone Nasal [place] [Flonase Nasal [place]] 1 spray NASAL QAM PRN 03/02/25 [History] Ibuprofen(Unknown Dose) 1 dose PO DIRECTED PRN 03/02/25 [History] Latanoprost Ophth [Xalatan 0.005%] 1 drops BOTH EYES HS 03/02/25 [History] Prilosec(Unknown Dose) 1 dose PO QAM PRN 03/02/25 [History] Vitamin B12(Unknown Dose) 1 dose PO QAM 03/02/25 [History] Vitamin D3/Vitamin K2 (Mk4) [Vitamin K2 Plus D3 Tablet] 1 each PO QAM 03/02/25 [History] lisinopriL [Zestril] 10 mg PO QAM 03/02/25 [History] Follow up Appointment(s)/Referral(s): Fletcher Torres MD [Medical Doctor] - 2 Weeks Activity/Diet/Wound Care/Special Instructions: 1. Weight-bear as tolerated on your operative extremity unless instructed otherwise. Use a walker or other assistive device to ambulate. 2. Leave surgical dressing in place. If your dressing becomes saturated with blood, there is drainage, or the dressing becomes loose please contact the office. 3. It is okay to shower with your surgical dressing, but do not submerge in water (no hot tubs, bath's, swimming etc.) 4. Make sure to take her blood clot prevention medication as prescribed (aspirin, Eliquis, Xarelto, and Plavix are commonly prescribed medications for blood clot prevention) 5. While taking [place] or Percocet for pain make sure you're taking a stool softener (Colace) and drink lots of water. 6. Keep all follow-up appointments as scheduled. You will usually be seen in 1-2 weeks following surgery. 7. Please contact the office with any questions or concerns [phone] Discharge Disposition: HOME WITH HOME HEALTH SERVICES
[2025-03-11 10:34] LABS: Basophils # (A) 0.01 X 10*3/uL (0.00-0.10); Basophils % (A) 0.1 %; Eosinophils # (A) 0 X 10*3/uL (0.04-0.35); Eosinophils % (A) 0 %; HCT 33.2 % (37.2-46.3); HGB 10.8 g/dL (12.0-15.0); Lymphocytes # (A) 0.98 X 10*3/uL (0.90-5.00); Lymphocytes % (A) 7.1 %; MCH 32.4 pg (27.0-32.0); MCHC 32.5 g/dL (32.0-37.0); MCV 99.7 FL (80.0-97.0); Mean Platelet Volume 11.1 FL (9.5-12.2); Monocytes # (A) 0.48 X 10*3/uL (0.20-1.00); Monocytes % (A) 3.5 %; NRBC Per 100 WBC 0 X 10*3/uL (0.00-0.01); Neutrophils # (A) 12.28 X 10*3/uL (1.80-7.70); Neutrophils % (A) 88.9 %; Platelet Count 198 X 10*3/uL (140-440); RBC 3.33 X 10*6/uL (4.10-5.20); RDW 12.2 % (11.5-14.5); WBC 13.81 X 10*3/uL (4.50-10.00)
[2025-03-11] MEDS ORDERED: SERTRALINE 50 MG TAB PO SCH (21:00)
[2025-03-11] MEDS ORDERED: LATANOPROST 0.005% OPHTH DROPS 2.5 ML BTL BOTH EYES SCH (21:00)
[2025-03-11] MEDS ORDERED: ZOLPIDEM 5 MG TAB PO SCH (21:00)
== END 2025-03-11 11:22 | disposition home health service (06) ==
LOC: OR 10:28 → 4SSUR 14:29 → OR 03-11 11:22
PROVIDERS: ATTEND Orthopaedic Surgery
DX: M16.12 Unilateral primary osteoarthritis, left hip (principal); K21.9 Gastro-esophageal reflux disease without esophagitis; I10 Essential (primary) hypertension; E78.5 Hyperlipidemia, unspecified; E03.9 Hypothyroidism, unspecified; F32.A Depression, unspecified; G47.00 Insomnia, unspecified; Z98.51 Tubal ligation status; Z90.49 Acquired absence of other specified parts of digestive tract; Z90.89 Acquired absence of other organs; Z87.891 Personal history of nicotine dependence; Z96.642 Presence of left artificial hip joint; Z82.49 Family history of ischemic heart disease and other diseases of the circulatory system; Z82.3 Family history of stroke; Z80.1 Family history of malignant neoplasm of trachea, bronchus and lung; Z88.5 Allergy status to narcotic agent; Z79.890 Hormone replacement therapy; Z79.899 Other long term (current) drug therapy
CPT/HCPCS: 27130; 97161; 64473; 85025; 73501; C1776; C1713; J2250; J1100 ×2; J2710; J0690 ×2; J2405; J2003; J3010; J1171; J2795; J1885; J2704; J2371; J1596; J1308

== ENCOUNTER 2025-03-18 22:30 | Emergency (ER) | payer MEDICARE ==
--- NOTE | 2025-03-19 00:59 | ED ---
Extremity Problem HPI - General Source: patient, RN notes reviewed Mode of arrival: ambulatory Limitations: no limitations <Ashley Burgess - Last Filed: 03/19/25 04:12> <Giuliana Butt - Last Filed: 03/19/25 08:13> - General Chief complaint: Extremity Problem,Nontraumatic Stated complaint: foot pain Time Seen by Provider: 03/19/25 00:56 - History of Present Illness Initial comments: 74-year-old female presenting for left lower extremity edema and contusions x 3 hours. States she underwent left hip replacement with Dr. Torres 9 days ago. States she has been healing well and is able to walk with a cane, however around 9 PM tonight she began to notice swelling in the left foot with contusions to the foot, calf, and upper thigh. Denies blood thinners. Denies incision pain or drainage/redness (Ashley Burgess) - Related Data Home Medications Medication Instructions Recorded Confirmed Alendronate Sodium 70 mg PO WEEKLY 02/07/25 03/10/25 Levothyroxine Sodium [Tirosint] 88 mcg PO QAM 02/07/25 03/10/25 Rosuvastatin [Crestor] 10 mg PO HS 02/07/25 03/10/25 Sertraline [Zoloft] 50 mg PO HS 02/07/25 03/10/25 Zolpidem [Ambien] 2.5 mg PO DIRECTED 02/07/25 03/10/25 Fluticasone Nasal Barnhart [Flonase 1 spray NASAL QAM PRN 03/02/25 03/10/25 Nasal Barnhart] Ibuprofen(Unknown Dose) 1 dose PO DIRECTED PRN 03/02/25 03/10/25 Latanoprost Ophth [Xalatan 0.005%] 1 drops BOTH EYES HS 03/02/25 03/10/25 Prilosec(Unknown Dose) 1 dose PO QAM PRN 03/02/25 03/10/25 Vitamin B12(Unknown Dose) 1 dose PO QAM 03/02/25 03/10/25 Vitamin D3/Vitamin K2 (Mk4) 1 each PO QAM 03/02/25 03/10/25 [Vitamin K2 Plus D3 Tablet] lisinopriL [Zestril] 10 mg PO QAM 05/01/25 05/09/25 Allergies Allergy/AdvReac Type Severity Reaction Status Date / Time meperidine [From Demerol] AdvReac Nausea & Verified 03/18/25 22:37 Vomiting Review of Systems ROS Other: All systems not noted in ROS Statement are negative. <Ashley Burgess - Last Filed: 03/19/25 04:12> ROS Other: All systems not noted in ROS Statement are negative. <Giuliana Butt - Last Filed: 03/19/25 08:13> ROS Statement: Those systems with pertinent positive or pertinent negative responses have been documented in the HPI. Past Medical History Past Medical History: Hyperlipidemia, Thyroid Disorder Additional Past Medical History / Comment(s): Insomnia, osteopena, hypothyroid, Mild Depression History of Any Multi-Drug Resistant Organisms: None Reported Past Surgical History: Adenoidectomy, Appendectomy, Tonsillectomy, Tubal Ligation Additional Past Surgical History / Comment(s): Colonoscopies ( 8 - 10) (Patient to have total Left hip replacment on March 10, 2025 - fx femoral bone - stress fx), cyst removed right breast Past Anesthesia/Blood Transfusion Reactions: No Reported Reaction, Motion Sickness Additional Past Anesthesia/Blood Transfusion Reaction / Comment(s): No hx of blood transfusion to date. Mother has PONV. Past Psychological History: Depression Smoking Status: Former smoker Past Alcohol Use History: Occasional Past Drug Use History: None Reported - Past Family History Father Family Medical History: Cancer, CVA/TIA, Hypertension Additional Family Medical History / Comment(s): Skin cancer, snoring (patient brother of cancer, - 8 weeks - unsure type but thinks it started in the lungs) Brother(s) Family Medical History: Cancer, Pulmonary Embolus Additional Family Medical History / Comment(s): Lung cancer <Ashley Burgess - Last Filed: 03/19/25 04:12> General Exam Limitations: no limitations General appearance: alert, in no apparent distress Head exam: Present: atraumatic, normocephalic, normal inspection Left Hip exam: Present: normal inspection (Well-healing incision left hip), full ROM. Absent: tenderness, swelling Upper Leg exam: Present: normal inspection (Multiple purple contusions present throughout left lower extremity), full ROM. Absent: tenderness, swelling Knee exam: Present: full ROM, swelling. Absent: normal inspection, tenderness Lower Leg exam: Present: full ROM, swelling. Absent: normal inspection, tenderness Ankle exam: Present: full ROM, swelling. Absent: normal inspection, tenderness Foot/Toe exam: Present: full ROM. Absent: normal inspection, tenderness, sw elling Neurovascular tendon exam: Present: no vascular compromise. Absent: pulse deficit, abnormal cap refill, sensory deficit Neurological exam: Present: alert, oriented X3 Psychiatric exam: Present: normal affect, normal mood Skin exam: Present: warm, dry, intact, normal color. Absent: rash <BurgessAshley - Last Filed: 03/19/25 04:12> Course Vital Signs 03/18/25 03/19/25 03/19/25 22:35 04:40 06:42 Temperature 97.6 F 98.0 F 97.9 F Pulse Rate 77 79 65 Respiratory 17 18 18 Rate Blood Pressure 146/73 116/68 132/75 O2 Sat by Pulse 97 95 Oximetry Medical Decision Making <Ashley Burgess - Last Filed: 03/19/25 04:12> - Lab Data Result diagrams: 03/19/25 00:55 03/19/25 00:55 <Giuliana Butt - Last Filed: 03/19/25 08:13> - Medical Decision Making Was pt. sent in by a medical professional or institution (, PA, ED PHYSICIANS, urgent care, hospital, or custodial...) When possible be specific @ -No Did you speak to anyone other than the patient for history (EMS, parent, family, police, friend...)? What history was obtained from this source @ -No Did you review nursing and triage notes (agree or disagree)? Why? @ -I reviewed and agree with nursing and triage notes Were old charts reviewed (outside hosp., previous admission, EMS record, old EKG, old radiological studies, urgent care reports/EKG's, custodial records)? Report findings @ -No old charts were reviewed Differential Diagnosis (chest pain, altered mental status, abdominal pain women, abdominal pain men, vaginal bleeding, weakness, fever, dyspnea, syncope, headache, dizziness, GI bleed, back pain, seizure, CVA, palpatations, mental health, musculoskeletal)? @ -Differential Musculoskeletal Muscular strain, contusion, ligament sprain, fracture, arthritis, septic arthritis, bursitis, cellulitis, muscle spasm, nerve compression, DVT, arterial occlusion, herpes zoster, electrolyte abnormality, tumor.... This is not meant to be in all inclusive list EKG interpreted by me (3pts min.). @ -None X-rays interpreted by me (1pt min.). @ -None done CT interpreted by me (1pt min.). @ -None done U/S interpreted by me (1pt. min.). @ -Ultrasound left lower extremity pending at time of signout What testing was considered but not performed or refused? (CT, X-rays, U/S, labs)? Why? @ -None What meds were considered but not given or refused? Why? @ -None Did you discuss the management of the patient with other professionals (professionals i.e. , PA, ED PHYSICIANS, lab, RT, psych nurse, licensed social worker, director supply chain, teacher, neighborhood conservation officer, case fitter)? Give summary @ -No Was smoking cessation discussed for >3mins.? @ -No Was critical care preformed (if so, how long)? @ -No Were there social determinants of health that impacted care today? How? (Homelessness, low income, unemployed, alcoholism, drug addiction, transportation, low edu. Level, literacy, decrease access to med. care, custodial, rehab)? @ -No Was there de-escalation of care discussed even if they declined (Discuss DNR or withdrawal of care, Hospice)? DNR status @ -No What co-morbidities impacted this encounter? (DM, HTN, Smoking, COPD, CAD, Ca ncer, CVA, ARF, Chemo, Hep., AIDS, mental health diagnosis, sleep apnea, morbid obesity)? @ -None Was patient admitted / discharged? Hospital course, mention meds given and route, prescriptions, significant lab abnormalities, going to OR and other pertinent info. @ -74-year-old female presenting with left lower extremity edema status post left hip replacement 9 days ago. Denies injury or trauma. DP pulses intact bilaterally. Patient is requesting Pitman as she states she missed her at home dose. Case was signed out to my ED attending Dr. Butt at time of shift change pending left lower extremity ultrasound and lab work. (Ashley Burgess) Was patient admitted / discharged? Hospital course, mention meds given and route, prescriptions, significant lab abnormalities, going to OR and other pertinent info. @ -Discharge-patient was signed out to myself by Ashley CHO, pending ultrasound. Briefly she is a 74-year-old female with recent left hip replacement 9 days ago presenting for left lower extremity swelling and bruising. No trauma. Patient states that she is increasing the intensity of her workouts with her physical therapist. Denies significant pain. Ultrasound was reviewed by myself I see no evidence of DVT. Read by radiologist as no DVT, agree with radiologist interpretation. On my reassessment patient is resting comfortably. Updated her to findings. Discussed with her importance of applying cool compresses, icing and elevating her leg, continuing to be mobile as tolerated and following up with her orthopedic surgeon as scheduled. She was given strict return precautions warranting return to the emergency department, and was comfortable discharge home at this time. In my medical judgment there is currently no evidence of an immediate life- threatening or surgical condition. Discharge is therefore indicated at this time. Discharge treatment instructions, follow up instructions, and appropriate emergency department return precautions were discussed with the patient and/or medical decision maker. Patient and/or medical decision maker expressed understanding of and agreed with the treatment plan, follow up instructions, and emergency department return precaution. All patient's and/or medical decision maker's questions were answered. The patient was advised that a small risk still exists that a serious condition could develop and was therefore instructed to return to the ED for any changes in symptoms, persistent symptoms, inability to obtain proper follow-up or for any further concerns. Patient received verbal and written instructions for this condition. Undiagnosed new problem with uncertain prognosis? @ -No Drug Therapy requiring intensive monitoring for toxicity (Heparin, Nitro, Insulin, Cardizem)? @ -No Were any procedures done? @ -No Diagnosis/symptom? @Postop swelling Acute, or Chronic, or Acute on Chronic? Acute Uncomplicated (without systemic symptoms) or Complicated (systemic symptoms)? @Uncomplicated Side effects of treatment? @ -No Exacerbation, Progression, or Severe Exacerbation? @ -No Poses a threat to life or bodily function? How? (Chest pain, [place], [place], pneumonia, PE, COPD, DKA, ARF, appy, cholecystitis, CVA, Diverticulitis, Homicidal, Suicidal, threat to staff... and all critical care pts) @ -No (,Giuliana) - Lab Data Lab Results 03/19/25 03/19/25 Range/Units 00:55 00:55 WBC 6.27 (4.50-10.00) 10*3/uL RBC 3.02 L (4.10-5.20) 10*6/uL Hgb 10.0 L (12.0-15.0) g/dL Hct 29.5 L (37.2-46.3) % MCV 97.7 H (80.0-97.0) fL MCH 33.1 H (27.0-32.0) pg MCHC 33.9 (32.0-37.0) g/dL Plt Count 228 (140-440) 10*3/uL MPV 10.0 (9.5-12.2) fL Immature Gran % (Auto) 0.3 % Neutrophils % 44.9 % Lymphocytes % 41.6 % Monocytes % 9.4 % Eosinophils % 3.5 % Basophils % 0.3 % Immature Gran # 0.02 (0.00-0.04) 10*3/uL Neutrophils # 2.81 (1.80-7.70) 10*3/uL Lymphocytes # 2.61 (0.90-5.00) 10*3/uL Monocytes # 0.59 (0.20-1.00) 10*3/uL Eosinophils # 0.22 (0.04-0.35) 10*3/uL Basophils # 0.02 (0.00-0.10) 10*3/uL Sodium 138 (137-145) mmol/L Potassium 3.9 (3.5-5.1) mmol/L Chloride 108 H (98-107) mmol/L Carbon Dioxide 24 (22-30) mmol/L Anion Gap 6 mmol/L BUN 17 (7-17) mg/dL Creatinine 0.75 (0.52-1.04) mg/dL Est GFR (CKD-EPI)AfAm >90 (>60 ml/min/1.73 sqM) Est GFR (CKD-EPI)NonAf 79 (>60 ml/min/1.73 sqM) Glucose 91 (74-99) mg/dL Calcium 8.9 (8.4-10.2) mg/dL Total Bilirubin 0.5 (0.2-1.3) mg/dL AST 32 (14-36) U/L ALT 28 (4-34) U/L Alkaline Phosphatase 49 (38-126) U/L Total Protein 5.2 L (6.3-8.2) g/dL Albumin 3.0 L (3.5-5.0) g/dL Disposition <Ashley Burgess - Last Filed: 03/19/25 04:12> Is patient prescribed a controlled substance at d/c from ED?: No <Giuliana Butt - Last Filed: 03/19/25 08:13> Clinical Impression: Edema of left lower extremity Disposition: HOME SELF-CARE Condition: Good Instructions (If sedation given, give patient instructions): Leg Edema (ED) Additional Instructions: Every disease is a spectrum and a small chance still exists that a serious condition could develop, for this reason, please monitor yourself closely for new, changing or worsening symptoms, symptoms that do not begin to improve over the next 48 hours, difficulty in breathing, worsening swelling, uncontrolled pain, fever, inability to tolerate/keep down fluids or your medications, inability to follow up with outpatient providers as instructed and should you experience these symptoms or should you have any further concerns for your wellbeing please return to the ED or call 911 immediately. PLEASE call your primary care physician as soon as possible to arrange / discuss plan for followup appointment. Appointment in the next 1-3 days is strongly encouraged if possible. PLEASE let us know here before you leave if there is anything further we can do to be of any assistance. Take care and feel Better! Referrals: Fili Tejeda MD [Primary Care Provider] - 1-2 days
[2025-03-19] MEDS: HYDROcodone/APAP 5-325MG 1 EACH TAB PO STA (03:20)
[2025-03-19 04:41] VITALS: RESP 18
[2025-03-19 04:59] LABS: Basophils # (A) 0.02 10*3/uL (0.00-0.10); Basophils % (A) 0.3 %; Eosinophils # (A) 0.22 10*3/uL (0.04-0.35); Eosinophils % (A) 3.5 %; HCT 29.5 % (37.2-46.3); Lymphocytes # (A) 2.61 10*3/uL (0.90-5.00); Lymphocytes % (A) 41.6 %; MCH 33.1 pg (27.0-32.0); MCHC 33.9 g/dL (32.0-37.0); MCV 97.7 fL (80.0-97.0); Monocytes # (A) 0.59 10*3/uL (0.20-1.00); Monocytes % (A) 9.4 %; Neutrophils # (A) 2.81 10*3/uL (1.80-7.70); Neutrophils % (A) 44.9 %; Platelet Count 228 10*3/uL (140-440); RBC 3.02 10*6/uL (4.10-5.20); RDW 12.2 % (11.5-14.5); WBC 6.27 10*3/uL (4.50-10.00)
[2025-03-19 05:17] LABS: ALT 28 U/L (4-34); AST 32 U/L (14-36); African American GFR (CKD) >90 (>60 ml/min/1.73 sqM); Alkaline Phosphatase 49 U/L (38-126); Anion Gap 6 mmol/L; Blood Urea Nitrogen 17 mg/dL (7-17); Calcium 8.9 mg/dL (8.4-10.2); Carbon Dioxide 24 mmol/L (22-30); Chloride 108 mmol/L (98-107); Glucose 91 mg/dL (74-99); Non-African American GFR(CKD) 79 (>60 ml/min/1.73 sqM); Potassium 3.9 mmol/L (3.5-5.1); Sodium 138 mmol/L (137-145); Total Bilirubin 0.5 mg/dL (0.2-1.3); Total Protein 5.2 g/dL (6.3-8.2)
--- NOTE | 2025-03-19 05:48 | US ---
Exam: US VENOUS LEFT LOWER EXTREMITY DATE OF EXAM: 03/19/2025 1:01 AM COMPARISON: NONE CLINICAL INDICATION: Female, 74 years old with history of left lower extremity edema; Left leg pain s/p left hip replacement, no prior DVT, not on blood thinners, Pain TECHNIQUE: The lower extremity deep venous system is examined utilizing real time linear array sonography with graded compression, color doppler sonography, and spectral doppler. SIDE PERFORMED: Left FINDINGS: VESSELS IMAGED: Common Femoral Vein Deep Femoral Vein Greater Saphenous Vein * Femoral Vein Popliteal Vein Small Saphenous Vein * Proximal Calf Veins (* superficial vessels) Left Leg: Negative for DVT, Color Doppler imaging shows patency of the vessels. Spectral waveforms are within normal limits. IMPRESSION: No ultrasound evidence for deep venous thrombosis.
[2025-03-19 06:46] VITALS: BP 132/75; PULSE 65; TEMP 97.9
== END 2025-03-19 06:47 | disposition home or self-care (01) ==
LOC: EC 22:30
DX: S90.32XA Contusion of left foot, initial encounter (principal); Z88.5 Allergy status to narcotic agent; Z87.891 Personal history of nicotine dependence; X58.XXXA Exposure to other specified factors, initial encounter
CPT/HCPCS: 36415; 80053; 85025; 99284